=== PATIENT | female | born 1970 | race Caucasian/White ===

== ENCOUNTER 2021-10-30 10:44 | Outpatient (CLI) | payer OTHER | END 2021-10-30 10:45 | disposition home or self-care (01) | LOC: CSHMAMMO 10:44 | PROVIDERS: ATTEND Family Medicine | DX: Z12.31 Encounter for screening mammogram for malignant neoplasm of breast (principal); Z80.3 Family history of malignant neoplasm of breast | CPT/HCPCS: 77063; 77067 ==

== ENCOUNTER 2022-07-02 16:33 | Outpatient (CLI) | payer OTHER | END 2022-07-02 16:34 | disposition home or self-care (01) | LOC: CSHULT 16:33 | PROVIDERS: ATTEND Family Medicine | DX: M79.605 Pain in left leg (principal); I82.442 Acute embolism and thrombosis of left tibial vein ==

== ENCOUNTER 2022-07-02 17:55 | Emergency (ER) | payer OTHER ==
[2022-07-02] MEDS ORDERED: HYDROcodone/Acetaminophen 5/325 mg Tablet ONE ×2 (20:20)
== END 2022-07-02 20:30 | disposition home or self-care (01) ==
LOC: CSHERS 17:55
DX: I82.4Z2 Acute embolism and thrombosis of unspecified deep veins of left distal lower extremity (principal)
CPT/HCPCS: 99283